=== PATIENT | female | born 1960 | race Caucasian/White ===

== ENCOUNTER 2021-10-26 10:06 | Day surgery (SDC) | payer BC, OTHER ==
[~2021-10-26] VITALS: Ht 165.1 cm; Wt 67.9 kg
[~2021-10-26 10:06] MED LIST: ASPI81TA26 PO; BILB100C PO; BSS IRRIG/VANCO(10MG)/TOBRA(5MG)/EPINEPH(1:1000-0.5CC)500ML BAG-ORONLY IR ONE; COQ-100C5 PO; ESTR1TAB PO; FLUO40CA PO; GLYB5TAB6 PO; LIDOCAINE 1% SDV 5ML VIAL As Ordered ONE; LIDOCAINE 3.5 % 1ML OPHTH TOPICAL GEL OU ONE; METF500T13 PO; NICO2GUM48 PO; OFLOXACIN 0.3 % (OCUFLOX) OPTH SOL 5ML OD ONE; OMEP40CA4 PO; PHENYLEPHRINE HCL 10 % OPHTH. SOL 5ML OD PRN; PROPARACAINE 0.5% OPHTH SOL 15ML OU ONE; ROSU20TA5 PO; SUPER GREENS PO; TRUL0.5I SC; VITA100093 PO; VITMTA PO
[2021-10-26] MEDS: TROPICAMIDE 1% OPHTH SOLN 2ML OD SCH ×3 (11:09→11:26)
[2021-10-26] MEDS: PHENYLEPHRINE 2.5% OPHTH SOL 2ML OD SCH ×3 (11:09→11:26)
[2021-10-26] MEDS: CYCLOPENTOLATE 1% OPHTH SOLN 2 ML BTL OD SCH ×3 (11:09→11:26)
[2021-10-26 11:55] VITALS: BP 125/61
[2021-10-26] MEDS ORDERED: fentaNYL 100 MCG/2 ML INJECTION As Ordered ONE (11:55)
[2021-10-26] MEDS ORDERED: MIDAZOLAM INJ 2MG/2ML VIAL (J2250 PER 1MG) As Ordered ONE (11:55)
== END 2021-10-26 12:25 | disposition home or self-care (01) ==
LOC: M SDC 10:06
PROVIDERS: ATTEND Ophthalmology
DX: H25.11 Age-related nuclear cataract, right eye (principal); E11.65 Type 2 diabetes mellitus with hyperglycemia; E55.9 Vitamin D deficiency, unspecified; E78.00 Pure hypercholesterolemia, unspecified; R41.3 Other amnesia; K21.9 Gastro-esophageal reflux disease without esophagitis; F32.A Depression, unspecified; M54.41 Lumbago with sciatica, right side; M51.26 Other intervertebral disc displacement, lumbar region; G56.00 Carpal tunnel syndrome, unspecified upper limb; Z79.899 Other long term (current) drug therapy; Z79.890 Hormone replacement therapy; Z79.84 Long term (current) use of oral hypoglycemic drugs; Z88.0 Allergy status to penicillin
CPT/HCPCS: 66984; J2250; J3010

== ENCOUNTER 2021-12-07 11:45 | Day surgery (SDC) | payer BC, OTHER ==
[~2021-12-07] VITALS: Ht 165.1 cm; Wt 69.3 kg
[~2021-12-07 11:45] MED LIST changes: +ACETYLCHOLINE OPHTH SOLN 1% 2ML (MIOCHOL-E) As Ordered ONE; +CYCLOPENTOLATE 1% OPHTH SOLN 2 ML BTL OS SCH; -OFLOXACIN 0.3 % (OCUFLOX) OPTH SOL 5ML OD ONE; +OFLOXACIN 0.3 % (OCUFLOX) OPTH SOL 5ML OS ONE; +PHENYLEPHRINE 2.5% OPHTH SOL 2ML OS SCH; -PHENYLEPHRINE HCL 10 % OPHTH. SOL 5ML OD PRN; +PHENYLEPHRINE HCL 10 % OPHTH. SOL 5ML OS PRN; -PROPARACAINE 0.5% OPHTH SOL 15ML OU ONE; +TROPICAMIDE 1% OPHTH SOLN 2ML OS SCH
[2021-12-07] MEDS ORDERED: fentaNYL 100 MCG/2 ML INJECTION As Ordered ONE (13:10)
[2021-12-07] MEDS ORDERED: MIDAZOLAM INJ 2MG/2ML VIAL (J2250 PER 1MG) As Ordered ONE (13:10)
[2021-12-07 13:20] VITALS: BP 123/68
== END 2021-12-07 13:55 | disposition home or self-care (01) ==
LOC: M SDC 11:45
PROVIDERS: ATTEND Ophthalmology
DX: H25.12 Age-related nuclear cataract, left eye (principal); Z88.0 Allergy status to penicillin
CPT/HCPCS: 66984; J2250; J3010